=== PATIENT | male | born 1950 | race Two or more races ===

== ENCOUNTER 2016-11-25 14:41 | Inpatient (IN) | payer MEDICAID ==
[~2016-11-25] VITALS: Ht 175.3 cm; Wt 93.9 kg
[2016-11-25] MEDS ORDERED: ASPIRIN 81 MG TAB.CHEW PO ONE (15:00)
[2016-11-25] MEDS ORDERED: ASPIRIN 81 MG TAB.CHEW ONE (15:01)
[2016-11-25 15:05] LABS: BASOPHILS % (AUTO) 0.3 % (0.0-2.0); DIFF TOTAL % 100 %; EOSINOPHILS # (AUTO) 0.1 /CMM (0.0-0.7); HEMATOCRIT 44 % (39-51); HEMOGLOBIN 14.8 g/dL (13.5-17.5); LYMPHOCYTES # (AUTO) 2.4 /CMM (0.8-4.8); LYMPHOCYTES % (AUTO) 32.5 % (20.0-44.0); MEAN CORPUSCULAR HEMOGLOBIN 29 PG (26.0-33.0); MEAN CORPUSCULAR HGB CONC 33 g/dl (31.0-36.0); MEAN CORPUSCULAR VOLUME 87 fL (80-96); MONOCYTES # (AUTO) 0.6 /CMM (0.1-1.30); MONOCYTES % (AUTO) 8.4 % (2.0-12.0); NEUTROPHILS # (AUTO) 4.2 /CMM (1.8-8.9); NEUTROPHILS % (AUTO) 57.8 % (43.0-81.0); PLATELET COUNT (AUTO) 197 /CMM (150-450); RED BLOOD CELL COUNT(AUTO) 5.06 MIL/uL (4.5-6.0); WHITE BLOOD COUNT (AUTO) 7.3 K/uL (4.3-11.0)
[2016-11-25 15:25] LABS: TROPONIN I < 0.017 ng/mL (0.00-0.056)
[2016-11-25 15:30] LABS: ANION GAP 11 (5-14); CALCIUM, SERUM 8.4 mg/dL (8.5-10.1); CARBON DIOXIDE 27 mmol/L (21-32); CHLORIDE 103 mmol/L (98-107); CREATININE 1.1 mg/dL (0.6-1.3); GFR 67 mL/min (>60); GLUCOSE 174 mg/dL (74-106); POTASSIUM 3.9 mmol/L (3.5-5.1); SODIUM SERUM 137 mmol/L (136-145); UREA NITROGEN, BLOOD 12 mg/dL (7-18)
[2016-11-25 15:32] LABS: INR 1.05 (0.87-1.13)
[2016-11-25 20:00] VITALS: BP 162/80
[2016-11-25] MEDS ORDERED: ACETAMINOPHEN 325 MG TABLET PO PRN (22:30)
[2016-11-25] MEDS ORDERED: HYDROCODONE/APAP 5/325MG 1 EACH TABLET PO PRN (22:30)
[2016-11-25] MEDS ORDERED: ZOLPIDEM TARTRATE 5 MG TABLET PO PRN (22:30)
[2016-11-25] MEDS: METOPROLOL TARTRATE 25 MG TABLET PO SCH (22:30)
[2016-11-25] MEDS: ATORVASTATIN 10 MG TABLET PO SCH (22:30)
[2016-11-26] VITALS (8 sets, daily range): BP systolic 127–158; BP diastolic 73–88
[2016-11-26] MEDS ORDERED: METOPROLOL TARTRATE 25 MG TABLET ONE (00:10)
[2016-11-26] MEDS ORDERED: IV PREMIX 0.45% NS + KCL 1,000 ML IV ONE (01:46)
[2016-11-26] MEDS ORDERED: IV SET PRIMARY PUMP SET 1 EA INFUS.SET MC ONE (02:02)
[2016-11-26 07:25] LABS: BASOPHILS % (AUTO) 0.4 % (0.0-2.0); DIFF TOTAL % 100 %; EOSINOPHILS # (AUTO) 0.1 /CMM (0.0-0.7); EOSINOPHILS % (AUTO) 0.8 % (0.0-6.0); HEMATOCRIT 42 % (39-51); HEMOGLOBIN 14.4 g/dL (13.5-17.5); LYMPHOCYTES # (AUTO) 2.2 /CMM (0.8-4.8); LYMPHOCYTES % (AUTO) 30.2 % (20.0-44.0); MEAN CORPUSCULAR HEMOGLOBIN 30 PG (26.0-33.0); MEAN CORPUSCULAR HGB CONC 34 g/dl (31.0-36.0); MEAN CORPUSCULAR VOLUME 87 fL (80-96); MONOCYTES # (AUTO) 0.7 /CMM (0.1-1.30); MONOCYTES % (AUTO) 8.9 % (2.0-12.0); NEUTROPHILS # (AUTO) 4.4 /CMM (1.8-8.9); NEUTROPHILS % (AUTO) 59.7 % (43.0-81.0); PLATELET COUNT (AUTO) 184 /CMM (150-450); RED BLOOD CELL COUNT(AUTO) 4.78 MIL/uL (4.5-6.0); WHITE BLOOD COUNT (AUTO) 7.4 K/uL (4.3-11.0)
[2016-11-26 07:48] LABS: ALBUMIN 3.4 g/dL (3.4-5.0); BILIRUBIN,TOTAL 0.7 mg/dL (0.2-1.0); CALCIUM, SERUM 8.4 mg/dL (8.5-10.1); CREATININE 0.9 mg/dL (0.6-1.3); POTASSIUM 4.1 mmol/L (3.5-5.1); TOTAL PROTEIN, SERUM 6.8 g/dL (6.4-8.2)
[2016-11-26 07:56] LABS: THYROID STIMULATING HORMONE 5.189 uIU/mL (0.358-3.74)
[2016-11-26] MEDS ORDERED: ASPIRIN 325 MG TABLET PO SCH (09:00)
[2016-11-26] MEDS ORDERED: LISINOPRIL (10MG) 10 MG TABLET PO SCH (09:00)
[2016-11-26] MEDS ORDERED: INSU100I19 SQ (10:19)
[2016-11-26] MEDS ORDERED: ERGO50003 PO (10:19)
[2016-11-26] MEDS ORDERED: ESOM20CA37 PO (10:19)
[2016-11-26] MEDS ORDERED: DILT30TA14 PO (10:19)
[2016-11-26] MEDS ORDERED: ASPI81TA2 PO (10:19)
[2016-11-26] MEDS ORDERED: LOSA1TAB39 PO (10:19)
[2016-11-26] MEDS ORDERED: BLOO-668 IN (10:19)
[2016-11-26] MEDS ORDERED: GLIP5TAB13 PO (10:19)
[2016-11-26] MEDS ORDERED: CANA100T PO (10:19)
[2016-11-26] MEDS ORDERED: PRAV40TA3 PO (10:19)
[2016-11-26] MEDS ORDERED: NAPR500T3 PO (10:19)
[2016-11-26] MEDS ORDERED: DOXA4TAB3 PO (10:19)
[2016-11-26] MEDS ORDERED: LEVO25TA9 PO (10:19)
[2016-11-26] MEDS ORDERED: ARIP5TAB4 PO (10:19)
[2016-11-26] MEDS ORDERED: CARV12.52 PO (10:19)
[2016-11-26] MEDS: METOPROLOL TARTRATE 25 MG TABLET PO SCH (10:52)
[2016-11-26] MEDS: CARVEDILOL 12.5 MG TABLET PO SCH (21:06)
[2016-11-26] MEDS: ATORVASTATIN 10 MG TABLET PO SCH (21:06)
[2016-11-27 08:00] VITALS: BP 144/79
[2016-11-27] MEDS: CARVEDILOL 12.5 MG TABLET PO SCH (08:33)
[2016-11-27] MEDS ORDERED: LOSARTAN/HCTZ 50-12.5MG/ 1 EA TABLET PO SCH (09:00)
[2016-11-27] MEDS ORDERED: ASPIRIN 325 MG TABLET PO SCH (09:00)
[2016-11-27] MEDS ORDERED: ASPIRIN 81 MG TAB.CHEW PO SCH (09:00)
[2016-11-27] MEDS ORDERED: REGADENOSON 0.4 MG/5 ML DISP.SYRIN IVP ONE (12:30)
[2016-11-27 16:00] VITALS: BP 140/81
== END 2016-11-27 16:07 | disposition home or self-care (01) | DRG 756 ==
LOC: ER 14:42 → TRANSITION 20:10 → TELE 11-26 04:08 → MED 11-26 21:43
PROVIDERS: ADMIT Internal Medicine; ATTEND Internal Medicine
DX: F41.9 Anxiety disorder, unspecified (principal); I10 Essential (primary) hypertension; I25.10 Atherosclerotic heart disease of native coronary artery without angina pectoris; I25.2 Old myocardial infarction; E11.9 Type 2 diabetes mellitus without complications; E78.5 Hyperlipidemia, unspecified; Z83.3 Family history of diabetes mellitus; Z87.891 Personal history of nicotine dependence
CPT/HCPCS: 36415; 71010-TC; 80048-TC; 80053-TC; 80061-TC; 83880; 84443-TC; 84484-TC; 85025-TC; 85730-TC; 87081-TC; 93307-TC; A4606; A9502; J2785; J3480; J3490; Z7610

== ENCOUNTER 2017-03-12 15:15 | Inpatient (IN) | payer MEDICAID, MEDICARE ==
[~2017-03-12] VITALS: Ht 170.2 cm; Wt 86.2 kg
[~2017-03-12 15:15] MED LIST: ARIP5TAB4 PO; ASPI81TA2 PO; BLOO-668 IN; CANA100T PO; CARV12.52 PO; DILT30TA14 PO; DOXA4TAB3 PO; ERGO50003 PO; ESOM20CA37 PO; GLIP5TAB13 PO; INSU100I19 SQ; LEVO25TA9 PO; LOSA1TAB39 PO; NAPR500T3 PO; PRAV40TA3 PO
--- NOTE | 2017-03-12 15:18 | NUR ---
PT TO ER BED 11. HERE FOR EVER AND HEMATURIA X 5 DAYS. ALREADY TAKING BACTRIM. PT TEMP IS 101.4 DIRECTOR OF MARKETING [employer] PERFORMANCE ADS. GOWNED AND PLACED ON MONITOR. AWAITING MD SCHROEDER.
--- NOTE | 2017-03-12 16:25 | NUR ---
DR JENNINGS AT BEDSIDE FOR EVAL.
[2017-03-12] MEDS ORDERED: ACETAMINOPHEN ES 500 MG TABLET PO ONE (16:30)
[2017-03-12 16:36] LABS: APPEARANCE,URINE Cloudy (CLEAR); BILIRUBIN,URINE SMALL (NEGATIVE); BLOOD, URINE Large Ery/uL (NEGATIVE); COLOR,URINE Dark (YELLOW); KETONES,URINE Negative (NEGATIVE); LEUKOCYTE ESTERASE ,URINE Large (NEGATIVE); NITRITE, URINE Positive (NEGATIVE); PH,URINE 5.5 (5.0-8.0); PROTEIN,URINE 30 mg/dl (NEGATIVE); UGLUCOSE Negative (NEGATIVE)
[2017-03-12] MEDS ORDERED: ACETAMINOPHEN ES 500 MG TABLET ONE (16:40)
[2017-03-12 16:49] LABS: ADD URINE CULTURE YES; BACTERIA,URINE Few /HPF (None Seen); RBC,URINE 0-2 /HPF (0-2); SQUAMOUS EPITHELIAL CELL,UR Few /HPF (None Seen); WBC,URINE TOO NUMEROUS TO COUN /HPF (0-3)
[2017-03-12 16:50] LABS: BASOPHILS % (AUTO) 0.4 % (0.0-2.0); EOSINOPHILS % (AUTO) 0.1 % (0.0-6.0); HEMATOCRIT 42 % (39-51); HEMOGLOBIN 14.3 g/dL (13.5-17.5); LYMPHOCYTES # (AUTO) 1.4 /CMM (0.8-4.8); LYMPHOCYTES % (AUTO) 11.6 % (20.0-44.0); MEAN CORPUSCULAR HEMOGLOBIN 30 PG (26.0-33.0); MEAN CORPUSCULAR HGB CONC 34 g/dl (31.0-36.0); MEAN CORPUSCULAR VOLUME 87 fL (80-96); MONOCYTES # (AUTO) 1.1 /CMM (0.1-1.30); MONOCYTES % (AUTO) 8.6 % (2.0-12.0); NEUTROPHILS # (AUTO) 9.9 /CMM (1.8-8.9); NEUTROPHILS % (AUTO) 79.3 % (43.0-81.0); PLATELET COUNT (AUTO) 153 /CMM (150-450); RDW COEFFICIENT OF VARIATION 13.2 (11.5-15.0); RED BLOOD CELL COUNT(AUTO) 4.83 MIL/uL (4.5-6.0); WHITE BLOOD COUNT (AUTO) 12.4 K/uL (4.3-11.0)
[2017-03-12 16:56] LABS: CALCIUM, SERUM 8.9 mg/dL (8.5-10.1); CARBON DIOXIDE 22 mmol/L (21-32); CHLORIDE 100 mmol/L (98-107); CREATININE 1.4 mg/dL (0.6-1.3); GFR 51 mL/min (>60); GLUCOSE 205 mg/dL (74-106); POTASSIUM 4.5 mmol/L (3.5-5.1); SODIUM SERUM 132 mmol/L (136-145); UREA NITROGEN, BLOOD 21 mg/dL (7-18)
[2017-03-12 17:00] LABS: INR 1.09 (0.87-1.13); PROTHROMBIN TIME 11.3 SECS (9.5-12.7)
[2017-03-12 17:04] LABS: TROPONIN I < 0.017 ng/mL (0.00-0.056)
[2017-03-12 17:08] LABS: ALANINE AMINOTRANSFERASE 42 U/L (12-78); ALBUMIN 2.9 g/dL (3.4-5.0); ALKALINE PHOSPHATASE 93 U/L (46-116); ASPARTATE AMINOTRANSFERASE 29 U/L (15-37); BILIRUBIN,DIRECT 0.4 mg/dL (0.0-0.2); BILIRUBIN,TOTAL 0.9 mg/dL (0.2-1.0); TOTAL PROTEIN, SERUM 7.7 g/dL (6.4-8.2)
[2017-03-12 17:10] LABS: LACTIC ACID 1.2 mmol/L (0.4-2.0)
[2017-03-12] MEDS ORDERED: CEFTRIAXONE 1 G in IV D5W 50 ML IV ONE (18:00)
[2017-03-12] MEDS ORDERED: IV NS 0.9% 1,000 ML BAG IV ONE (18:00)
[2017-03-12] MEDS ORDERED: CEFTRIAXONE 1GM BAG (ER ONLY) 50 ML IV ONE (18:14)
[2017-03-12] MEDS ORDERED: IV SET PRIMARY PUMP SET 1 EA INFUS.SET MC ONE ×2 (18:14→21:52)
[2017-03-12] MEDS ORDERED: IV NS 0.9% 1,000 ML ONE (18:14)
--- NOTE | 2017-03-12 18:21 | NUR ---
ORAL TEMP RECHECK. 99.7
[2017-03-12 19:15] VITALS: BP 107/62
--- NOTE | 2017-03-12 19:15 | NUR ---
MS/TECHNICAL SUPPORT ASSOCIATE; ADMITTED 66 YEARS OLD MALE PT. FROM ER VIA GURNEY ACCOMPANIED BY ER MALE STAFF AND PT'S . PT AWAKE, ALERT AND ORIENTED ARMENIA / UGANDAN SPEAKING. INFORMATIONS TAKEN FOR AN CYMRAES TOBACCO EDUCATOR. DENIES PAIN. PT INSTRUCTED TO CALL FOR HELP. CALL LIGHT AND URINAL WITHIN REACH. BED ON LOWER POSITION AND LOCKED FOR SAFETY. UPPER PART OF BED SIDE RAILS ARE UP FOR SAFETY. PT WITH SOME REDNESS WOODWARD ON BOTH LOWER LEGS AND UPPER LIP. DX; UTI. WILL CONTINUE TO MONITOR.
--- NOTE | 2017-03-12 19:28 | NUR ---
REPORT GIVEN TO NAIMA. PTTRANSFERED TO FLOOR. STABLE CONDITION.
[2017-03-12] MEDS ORDERED: ACETAMINOPHEN ES 500 MG TABLET PO PRN (19:30)
[2017-03-12 20:00] VITALS: BP 107/62
[2017-03-12] MEDS ORDERED: Medication Not On Formulary EA (Canagliflozin (Invokana) 100 MG) PO SCH (20:00)
[2017-03-12] MEDS ORDERED: DILTIAZEM HCL 30 MG TABLET PO SCH (20:00)
[2017-03-12] MEDS ORDERED: INSULIN REGULAR, HUMAN 100 UNIT/ML 3 ML VIAL SQ PRN (20:00)
[2017-03-12] MEDS ORDERED: CARVEDILOL 12.5 MG TABLET PO SCH (20:00)
[2017-03-12] MEDS ORDERED: ASPIRIN 81 MG TAB.CHEW PO SCH (20:00)
[2017-03-12] MEDS ORDERED: DEXTROSE 50%-WATER 50 ML DISP.SYRIN IV PRN (20:00)
[2017-03-12] MEDS ORDERED: *INSULIN REGULAR(HUMULIN R)HUM 100 UNIT/ML VIAL SQ PRN (20:00)
[2017-03-12] MEDS ORDERED: LEVOFLOXACIN 500 MG /D5W 100ML 500 MG in PREMIX 1 EA IV SCH (21:00)
[2017-03-12] MEDS ORDERED: SECONDARY IV SET 1 EA INFUS.SET MC ONE (21:52)
[2017-03-12] MEDS ORDERED: IV NS 0.9% 250 ML IV ONE (21:52)
[2017-03-12] MEDS ORDERED: INSULIN DETEMIR 100 UNIT/ML CARTRIDGE SQ SCH (22:00)
[2017-03-12] MEDS: BLOOD SUGAR DIAGNOSTIC 1 EACH STRIP VI SCH ×2 (22:15→22:20)
--- NOTE | 2017-03-12 22:15 | NUR ---
MS/WHEAT WASHER; BS 258 COVERAGE OF REGULAR INSULIN 6 UNITS NOT GIVEN PT REFUSED HE SAID NO INSULIN. CHARGE NURSE INFORMED AND SAID JUST DOCUMENT.
--- NOTE | 2017-03-13 02:00 | NUR ---
MS/BELT LINE FEEDER; AWAKE AT THIS TIME. OFFERED DVT PUMP FOR BOTH LOWER LEGS PT REFUSED.
--- NOTE | 2017-03-13 05:00 | NUR ---
MS/DAIRY FARM WORKER; PT OK TO USE THE DVT PUMP AND IT IS ON .
--- NOTE | 2017-03-13 06:00 | NUR ---
MS/SANDER MACHINE; BS 199 REGULAR INSULIN 3 UNITS SQ NOT GIVEN PT REFUSED AGAIN . HE SAID NO INSULIN.
[2017-03-13] MEDS: BLOOD SUGAR DIAGNOSTIC 1 EACH STRIP VI SCH ×2 (06:01→12:00)
--- NOTE | 2017-03-13 06:51 | NUR ---
MS/SAW SHARPENER; PT SAID HE SLEPT AT SHORT INTERVALS. DENIES ANY PAIN NOR DISCOMFORT. VOIDED CLEAR YELLOW URINE X 4 BUT NO HEMATURIA. PT USED URINAL Q VOIDING. HAS BEEN AFEBRILE. CONTINUE TO MONITOR. CALL LIGHT AND URINAL WITHIN REACH. WILL ENDORSE TO THE DAY SHIFT NURSE.
[2017-03-13] MEDS ORDERED: PANTOPRAZOLE 40 MG TABLET.DR PO SCH (07:30)
[2017-03-13] MEDS ORDERED: LEVOTHYROXINE SODIUM 25 MCG TABLET PO SCH (07:30)
--- NOTE | 2017-03-13 07:45 | NUR ---
RN OPEN NOTES RECEIVED REPORT FROM EMBOSSING CALENDER OPERATOR NURSE. PATIENT IS IN BED, ALERT AND ORIENTED TO NAME, TIME AND PLACE. BED IS IN LOW POSITION, LOCKED AND 2 SIDE RAILS ARE UP. IV SITE IS INTACT AND POTENT. WILL CONTINUE TO MONITOR AND ASSESS PATIENT.
[2017-03-13 07:59] LABS: BASOPHILS % (AUTO) 0.3 % (0.0-2.0); EOSINOPHILS % (AUTO) 0.1 % (0.0-6.0); HEMATOCRIT 38 % (39-51); HEMOGLOBIN 12.8 g/dL (13.5-17.5); LYMPHOCYTES # (AUTO) 1.6 /CMM (0.8-4.8); LYMPHOCYTES % (AUTO) 13.6 % (20.0-44.0); MEAN CORPUSCULAR HEMOGLOBIN 30 PG (26.0-33.0); MEAN CORPUSCULAR HGB CONC 34 g/dl (31.0-36.0); MEAN CORPUSCULAR VOLUME 88 fL (80-96); MONOCYTES # (AUTO) 1.1 /CMM (0.1-1.30); MONOCYTES % (AUTO) 9.7 % (2.0-12.0); NEUTROPHILS # (AUTO) 8.8 /CMM (1.8-8.9); NEUTROPHILS % (AUTO) 76.3 % (43.0-81.0); PLATELET COUNT (AUTO) 172 /CMM (150-450); RDW COEFFICIENT OF VARIATION 14.1 (11.5-15.0); RED BLOOD CELL COUNT(AUTO) 4.34 MIL/uL (4.5-6.0); WHITE BLOOD COUNT (AUTO) 11.6 K/uL (4.3-11.0)
[2017-03-13 08:33] LABS: CALCIUM, SERUM 8.4 mg/dL (8.5-10.1); CREATININE 1.2 mg/dL (0.6-1.3); POTASSIUM 4.1 mmol/L (3.5-5.1)
[2017-03-13] MEDS ORDERED: glipiZIDE 5 MG TABLET PO SCH (09:00)
[2017-03-13] MEDS ORDERED: ARIPIPRAZOLE 5 MG TABLET PO SCH (09:00)
[2017-03-13] MEDS ORDERED: LOSARTAN POTASSIUM 50 MG TABLET PO SCH (09:00)
[2017-03-13] MEDS ORDERED: ASPIRIN 81 MG TAB.CHEW PO SCH (09:00)
[2017-03-13] MEDS ORDERED: ATORVASTATIN 10 MG TABLET PO SCH (09:00)
[2017-03-13] MEDS ORDERED: CARVEDILOL 12.5 MG TABLET PO SCH (09:00)
[2017-03-13] MEDS ORDERED: HYDROCHLOROTHIAZIDE 25 MG TABLET PO SCH (09:00)
[2017-03-13] MEDS ORDERED: DOXAZOSIN MESYLATE (4 MG) 4 MG TABLET PO SCH (09:00)
[2017-03-13 09:12] VITALS: BP 118/64
[2017-03-13] MEDS ORDERED: LEVO500T15 PO (09:13)
[2017-03-13] MEDS ORDERED: LEVOFLOXACIN 500 MG /D5W 100ML 500 MG in PREMIX 1 EA IV SCH (09:30)
--- NOTE | 2017-03-13 12:45 | NUR ---
DIESEL TRACTOR OPERATOR NOTES PATIENT DISCHARGE INSTRUCTIONS REVIEWED WITH PATIENT AND HIS . ALL PERSONAL ITEMS AT THE PATIENT POSSESSION AT TIME OF DISCHARGE. PATIENT IV SITE REMOVED. ID BAND REMOVED. NEW PRESCRIPTION WAS GIVEN TO PATIENT. SKIN IS INTACT AT TIME OF DISCHARGE. PATIENT VITAL SIGN STABLE. NO SIGN AND SYMPTOMS OF DISTRESS. PATIENT IS BEING DISCHARGE IN A STABLE CONDITION.
[2017-03-13] MEDS ORDERED: INSULIN DETEMIR 100 UNIT/ML CARTRIDGE SQ SCH (22:00)
[2017-03-14] MEDS ORDERED: ERGOCALCIFEROL (VITAMIN D 2) 50,000 UNIT CAPSULE PO SCH (09:00)
== END 2017-03-13 13:10 | disposition home or self-care (01) | DRG 463 ==
LOC: ER 15:18 → MED 18:49
PROVIDERS: ADMIT Internal Medicine; ATTEND Internal Medicine
DX: N39.0 Urinary tract infection, site not specified (principal); I10 Essential (primary) hypertension; E03.9 Hypothyroidism, unspecified; E11.9 Type 2 diabetes mellitus without complications; E78.5 Hyperlipidemia, unspecified; I25.10 Atherosclerotic heart disease of native coronary artery without angina pectoris; Z79.84 Long term (current) use of oral hypoglycemic drugs
CPT/HCPCS: 36415; 76770-TC; 80048-TC; 80076-TC; 81000-TC; 82962-TC; 83605-TC; 84484-TC; 85025-TC; 85730-TC; 87040-TC; 87081-TC; 87086-TC; 87186-TC; A4216; A4606; J0696; J1815; J1956; J7030; J7050; Z7610

== ENCOUNTER 2017-03-19 19:02 | Emergency (ER) | payer MEDICARE, MEDICAID ==
[~2017-03-19] VITALS: Ht 172.7 cm; Wt 72.6 kg
[~2017-03-19 19:02] MED LIST changes: -DILT30TA14 PO; +LEVO500T15 PO
[2017-03-19] MEDS ORDERED: LIDOCAINE 2% JEL UROJET 10 ML MM ONE ×2 (19:20→19:30)
--- NOTE | 2017-03-19 19:20 | NUR ---
TO BED 4 AMBULATORY C/O DIFFICULTY URINATING SINCE YESTERDAY. PT AAOX4 NO ACUTE DISTRESS NOTED, RESP EVEN AND UNLABORED. ER MD AT BEDSIDE TO EVAL PT WITH ORDERS RECEIVED. PT UNABLE TO PROVIDE URINE SAMPLE AT THIS TIME.
--- NOTE | 2017-03-19 19:25 | NUR ---
BLOOD DRAWN BY TAB CARD PRESS OPERATOR.
[2017-03-19 19:28] LABS: BASOPHILS % (AUTO) 0.2 % (0.0-2.0); EOSINOPHILS # (AUTO) 0.1 /CMM (0.0-0.7); EOSINOPHILS % (AUTO) 0.7 % (0.0-6.0); HEMATOCRIT 43 % (39-51); HEMOGLOBIN 14.6 g/dL (13.5-17.5); LYMPHOCYTES # (AUTO) 2.7 /CMM (0.8-4.8); LYMPHOCYTES % (AUTO) 28.8 % (20.0-44.0); MEAN CORPUSCULAR HEMOGLOBIN 30 PG (26.0-33.0); MEAN CORPUSCULAR HGB CONC 34 g/dl (31.0-36.0); MEAN CORPUSCULAR VOLUME 87 fL (80-96); MONOCYTES # (AUTO) 0.8 /CMM (0.1-1.30); MONOCYTES % (AUTO) 8.4 % (2.0-12.0); NEUTROPHILS # (AUTO) 5.8 /CMM (1.8-8.9); NEUTROPHILS % (AUTO) 61.9 % (43.0-81.0); PLATELET COUNT (AUTO) 462 /CMM (150-450); RDW COEFFICIENT OF VARIATION 12.7 (11.5-15.0); RED BLOOD CELL COUNT(AUTO) 4.94 MIL/uL (4.5-6.0); WHITE BLOOD COUNT (AUTO) 9.4 K/uL (4.3-11.0)
--- NOTE | 2017-03-19 19:30 | NUR ---
F/C 16FR INSERTED WITH USE OF LIDOCAINE UROJECT, NOTED ORANGE COLOR URINE APPROXIMATELY 400ML'S. URINE SAMPLE COLLECTED AND SENT TO LAB.
[2017-03-19 19:38] LABS: CALCIUM, SERUM 8.9 mg/dL (8.5-10.1); CREATININE 1.6 mg/dL (0.6-1.3); POTASSIUM 4.5 mmol/L (3.5-5.1)
[2017-03-19 20:19] LABS: APPEARANCE,URINE Clear (CLEAR); BILIRUBIN,URINE Negative (NEGATIVE); BLOOD, URINE Moderate Ery/uL (NEGATIVE); COLOR,URINE Dark (YELLOW); KETONES,URINE Negative (NEGATIVE); LEUKOCYTE ESTERASE ,URINE Negative (NEGATIVE); NITRITE, URINE Positive (NEGATIVE); PROTEIN,URINE Negative (NEGATIVE); UGLUCOSE 100 MG/DL mg/dL (NEGATIVE)
[2017-03-19 20:30] LABS: ADD URINE CULTURE YES; BACTERIA,URINE Moderate /HPF (None Seen); SQUAMOUS EPITHELIAL CELL,UR Few /HPF (None Seen); WBC,URINE 0-2 /HPF (0-3)
--- NOTE | 2017-03-19 20:48 | NUR ---
LEG BAG APPLIED PER ER MD ORDER. Patient discharged to home in stable condition. Written and verbal after care instructions given. Patient verbalizes understanding of instruction. ambulatory with a steady gait noted.
[2017-03-19 20:50] VITALS: BP 147/89
== END 2017-03-19 20:50 | disposition home or self-care (01) ==
LOC: ER 19:05
DX: N40.1 Benign prostatic hyperplasia with lower urinary tract symptoms (principal); R33.8 Other retention of urine; R31.29 Other microscopic hematuria; I12.9 Hypertensive chronic kidney disease with stage 1 through stage 4 chronic kidney disease, or unspecified chronic kidney disease; N18.9 Chronic kidney disease, unspecified; E11.9 Type 2 diabetes mellitus without complications; Z79.82 Long term (current) use of aspirin; Z79.4 Long term (current) use of insulin
CPT/HCPCS: 36415; 51702; 80048; 81001; 85025; 87086; 99284; A4606; J3490; 81000-TC; Z7610

== ENCOUNTER 2022-12-20 13:37 | Inpatient (IN) | payer MEDICARE, OTHER ==
[~2022-12-20] VITALS: Ht 175.3 cm; Wt 82.1 kg
[~2022-12-20 13:37] MED LIST changes: +ARIP5TAB10 PO; -ARIP5TAB4 PO; +ASPI-1169 PO; -ASPI81TA2 PO; +ERGO500014 PO; -ERGO50003 PO; -LEVO500T15 PO; +LEVO500T23 PO; +NAPR-1009 PO; -NAPR500T3 PO
--- NOTE | 2022-12-20 13:46 | NUR ---
BIB FAMILY FOR CHEST PAIN/SOB X 1 WEEK. MID CHEST, NON RADIATING. SENT BY DR EDWARDS FOR FURTHER. PT AMBULATED TO BED WITH STEADY GAIT. AAOX4. NO SOB.
--- NOTE | 2022-12-20 13:50 | NUR ---
ESTABLISHED IV ACCESS 18G LEFT AC. BLOOD DRAWN, SENT TO LAB.
--- NOTE | 2022-12-20 13:55 | NUR ---
TECH AT BEDSIDE FOR EKG
--- NOTE | 2022-12-20 13:58 | NUR ---
PHLEB AT BEDSIDE FOR BLOOD DRAW
[2022-12-20 14:06] LABS: BASOPHILS % (AUTO) 0.2 % (0.0-2.0); EOSINOPHILS % (AUTO) 0.7 % (0.0-6.0); HEMATOCRIT 38 % (39-51); HEMOGLOBIN 12.4 g/dL (13.5-17.5); LYMPHOCYTES # (AUTO) 2.2 K/uL (0.8-4.8); LYMPHOCYTES % (AUTO) 24.7 % (20.0-44.0); MEAN CORPUSCULAR HGB CONC 33 g/dl (31.0-36.0); MEAN CORPUSCULAR VOLUME 84 fL (80-96); MONOCYTES # (AUTO) 1.1 K/uL (0.1-1.30); MONOCYTES % (AUTO) 12.3 % (2.0-12.0); NEUTROPHILS # (AUTO) 5.6 K/uL (1.8-8.9); NEUTROPHILS % (AUTO) 62.1 % (43.0-81.0); PLATELET COUNT (AUTO) 311 K/uL (150-450); RED BLOOD CELL COUNT(AUTO) 4.49 MIL/uL (4.5-6.0)
--- NOTE | 2022-12-20 14:07 | NUR ---
XRAY AT BEDSIDE
--- NOTE | 2022-12-20 14:07 | NUR ---
MOVE SHEET SUBMITTED.
[2022-12-20 14:14] LABS: CALCIUM, SERUM 9.1 mg/dL (8.5-10.1); CARBON DIOXIDE 23 mmol/L (21-32); CHLORIDE 103 mmol/L (98-107); CREATININE 1.3 mg/dL (0.6-1.3); GLUCOSE 224 mg/dL (74-106); POTASSIUM 4.1 mmol/L (3.5-5.1); SODIUM SERUM 138 mmol/L (136-145); UREA NITROGEN, BLOOD 21 mg/dL (7-18)
[2022-12-20] MEDS ORDERED: OLME40TA18 PO (14:14)
[2022-12-20] MEDS ORDERED: MEMA28CA5 PO (14:14)
[2022-12-20] MEDS ORDERED: TAMS-12 PO (14:14)
[2022-12-20] MEDS ORDERED: SITA1TAB6 PO (14:14)
[2022-12-20] MEDS ORDERED: FINA5TAB11 PO (14:14)
[2022-12-20] MEDS ORDERED: EMPA10TA PO (14:14)
--- NOTE | 2022-12-20 14:31 | NUR ---
TROPONIN 366 PER LAB. MADE AWARE.
--- NOTE | 2022-12-20 14:47 | NUR ---
JESSIE AT BEDSIDE. DARIEL [phone].
--- NOTE | 2022-12-20 14:48 | NUR ---
COVID SWAB COLLECTED AND SENT TO LAB.
[2022-12-20] MEDS ORDERED: ACETAMINOPHEN 325 MG TABLET PO PRN (15:00)
[2022-12-20] MEDS ORDERED: MAGNESIUM HYDROXIDE 30 ML UDC PO PRN (15:00)
[2022-12-20] MEDS ORDERED: ASPIRIN 81 MG TAB.CHEW PO ONE (15:00)
[2022-12-20] MEDS ORDERED: TEMAZEPAM 15 MG CAPSULE PO PRN (15:00)
[2022-12-20] MEDS ORDERED: DEXTROSE 50%-WATER 50 ML DISP.SYRIN IV PRN (15:00)
[2022-12-20] MEDS ORDERED: MAG HYDROX/AL HYDROX/SIMETH 30 ML UDC PO PRN (15:00)
[2022-12-20] MEDS ORDERED: MORPHINE SULFATE INJ 2 MG/ML DISP.SYRIN IV PRN (15:00)
[2022-12-20] MEDS ORDERED: NITROGLYCERIN 0.4 MG/TAB BOTTLE SL PRN (15:00)
[2022-12-20] MEDS ORDERED: HOME MED MISCELLANEOUS XX SCH ×2 (15:00)
[2022-12-20] MEDS ORDERED: Z GUARD REMEDY 4 OZ OINT TP PRN (15:00)
[2022-12-20] MEDS ORDERED: ONDANSETRON HCL/PF 4 MG/2 ML VIAL IVP PRN (15:00)
[2022-12-20] MEDS ORDERED: HYDROCODONE/APAP 5/325MG TABLET PO PRN (15:00)
[2022-12-20] MEDS ORDERED: ENOXAPARIN SODIUM 40 MG/0.4 ML DISP.SYRIN SQ SCH (15:00)
--- NOTE | 2022-12-20 15:24 | NUR ---
CALLED NURSING SUP FOR TELE BED.
[2022-12-20] MEDS ORDERED: ENOXAPARIN SODIUM 80 MG/0.8 ML DISP.SYRIN SQ ONE (15:30)
[2022-12-20 15:34] LABS: THYROID STIMULATING HORMONE < 0.007 uIU/mL (0.358-3.74)
[2022-12-20] MEDS ORDERED: ASPIRIN 81 MG TAB.CHEW ONE (15:36)
--- NOTE | 2022-12-20 15:37 | NUR ---
GOT BED 329
--- NOTE | 2022-12-20 15:48 | NUR ---
REPORT GIVEN TO MATTHEW ACHARYA.
[2022-12-20 16:25] VITALS: BP 167/90
--- NOTE | 2022-12-20 16:26 | NUR ---
PT TRANSFERRED TO UNIT VIA YEN ACLS PROTOCOL. WARM HANDOFF GIVEN TO RN ASSIGNED.
[2022-12-20] MEDS ORDERED: BLOOD SUGAR DIAGNOSTIC 1 EACH STRIP IN SCH (17:00)
[2022-12-20] MEDS ORDERED: CARVEDILOL 12.5 MG TABLET PO SCH (17:00)
--- NOTE | 2022-12-20 17:14 | NUR ---
MS RN NOTES NOTIFIED DR PAWEL ROYAL REGARDING TROPONIN CRITICAL RESULT 353, NO NEW ORDER MADE AT THIS TIME. ALSO CLARIFIED WITH DR ROAYL REGARDING LOVENOX 80 MG ORDER IF WANTS STARTED TOMORROW OR TODAY, LOVENOX NOT GIVEN AT THE ER PER SUELLEN ACHARYA AND PHARMACIST VERIFIED ADMINISTRATION RECORD NOT GIVEN, PER IF NOT GIVEN TODAY START DOSE LOVENOX 80 MG TONIGHT, ALSO CLARIFIED WITH MD REGARDING ACCU CHECK ORDER, PER MD HE WANTS ACCU CHECK A[facility]S.
[2022-12-20] MEDS ORDERED: LOSARTAN POTASSIUM 50 MG TABLET PO SCH (17:30)
--- NOTE | 2022-12-20 17:30 | NUR ---
MS RN NOTES PATIENT REFUSED INSULIN , BLOOD GLUCOSE IS 135, RISKS AND BENEFITS EXPLAINED, VERBALIZED UNDERSTANDING.
[2022-12-20] MEDS ORDERED: CT SWABBABLE VALVE TRANS SET 1 EA INFUS.SET MC ONE (17:44)
[2022-12-20] MEDS ORDERED: IV NS 0.9% 250 ML IV ONE (17:44)
[2022-12-20] MEDS ORDERED: IOHEXOL-350 100 ML VIAL IV ONE (17:44)
--- NOTE | 2022-12-20 17:45 | NUR ---
RN NOTES RECEIVED PT ON IN CT DEPARTMENT, A/OX4, ABLE TO COMMUNICATE , VSS STABLE , ON TELE SR HR IN 80'S , CONTINUE WITH CTA PER ORDER .
--- NOTE | 2022-12-20 17:55 | NUR ---
MS RN NOTES PATIENT TRANSPORTED FOR CTA IN STABLE CONDITION
[2022-12-20] MEDS ORDERED: METOPROLOL TARTRATE INJ 5 MG/5 ML AMPUL ONE ×2 (18:09→18:22)
[2022-12-20] MEDS: BLOOD SUGAR DIAGNOSTIC 1 EACH STRIP IN SCH ×2 (18:22→21:12)
[2022-12-20] MEDS: INSULIN REGULAR, HUMAN 100 UNIT/ML 3 ML VIAL SQ PRN (18:23)
--- NOTE | 2022-12-20 18:33 | NUR ---
MS RN NOTES CRITICAL TROPONIN [address] ROYAL MADE AWARE, NO NEW ORDER MADE.
--- NOTE | 2022-12-20 18:40 | NUR ---
RN NOTES CTA DONE , PT RECEIVED TOTAL OF 50 MG IV METOPROLOL , HR STAYED IN 70'S TO 80'S , SR , DURINING THE PROCEDURE. BP STABLE, PT TOLERATED CTA WELL, NO DISTRESS NOTED , DENIES ANY CHEST PAIN , PT BACK TO HIS ROOM IN STABLE CONDITION,
--- NOTE | 2022-12-20 19:00 | NUR ---
MS RN NOTES PATIENT IN BED ALERT ORIENTED X 4. NO ACUTE DISTRESS NOTED, BREATHING UNLABORED. DENIED PAIN AT THIS TIME, NO FACIAL GRIMACING NOTED. ON TELEMETRY SINUS RHYTHM HR 72. IV ACCESS PATENT AND INTACT, NO REDNESS, NO SWELLING NOTED. NEEDS ATTENDED AND ANTICIPATED. SAFETY MEASURES IN PLACE, CALL LIGHT WITHIN REACH, WILL ENDORSE TO NIGHT NURSE FOR CONTINUITY OF CARE.
[2022-12-20 20:00] VITALS: BP 141/78
[2022-12-20] MEDS: ENOXAPARIN SODIUM 40 MG/0.4 ML DISP.SYRIN SQ SCH (21:11)
[2022-12-20] MEDS: TAMSULOSIN 0.4 MG CAP.SR.24H PO SCH (21:12)
[2022-12-20] MEDS: INSULIN GLARGINE, 100 UNIT/ML CARTRIDGE SQ SCH (21:24)
--- NOTE | 2022-12-20 21:25 | NUR ---
MS RN NOTES PT REFUSED INSULIN RISK AND BENEFITS EXPLAINED X3 PER PT "NO I DON'T TAKE INSULIN I JUST TAKE THE PILL I DON'T NEED IT".
[2022-12-21] VITALS: BP 148/85
--- NOTE | 2022-12-21 03:14 | NUR ---
ms rn note received critical lab report pt troponin 381 reported to compressor station chief engineer dr Mathis. pt not reporting any chest pain at this time .
[2022-12-21 04:00] VITALS: BP 139/76
[2022-12-21 06:32] LABS: BASOPHILS % (AUTO) 0.4 % (0.0-2.0); EOSINOPHILS % (AUTO) 0.7 % (0.0-6.0); HEMATOCRIT 33 % (39-51); HEMOGLOBIN 11.1 g/dL (13.5-17.5); LYMPHOCYTES % (AUTO) 25.5 % (20.0-44.0); MEAN CORPUSCULAR HGB CONC 34 g/dl (31.0-36.0); MEAN CORPUSCULAR VOLUME 83 fL (80-96); MONOCYTES # (AUTO) 0.8 K/uL (0.1-1.30); MONOCYTES % (AUTO) 10.6 % (2.0-12.0); NEUTROPHILS # (AUTO) 4.9 K/uL (1.8-8.9); NEUTROPHILS % (AUTO) 62.8 % (43.0-81.0); PLATELET COUNT (AUTO) 268 K/uL (150-450); RED BLOOD CELL COUNT(AUTO) 3.97 MIL/uL (4.5-6.0); WHITE BLOOD COUNT (AUTO) 7.7 K/uL (4.3-11.0)
[2022-12-21] MEDS: BLOOD SUGAR DIAGNOSTIC 1 EACH STRIP IN SCH ×4 (06:39→21:59)
[2022-12-21] MEDS: INSULIN REGULAR, HUMAN 100 UNIT/ML 3 ML VIAL SQ PRN ×3 (06:40→17:03)
[2022-12-21 07:16] LABS: CALCIUM, SERUM 9.1 mg/dL (8.5-10.1); CARBON DIOXIDE 22 mmol/L (21-32); CHLORIDE 104 mmol/L (98-107); CREATININE 1.1 mg/dL (0.6-1.3); GLUCOSE 187 mg/dL (74-106); MAGNESIUM 1.8 mg/dL (1.8-2.4); PHOSPHORUS 3.6 mg/dL (2.5-4.9); SODIUM SERUM 139 mmol/L (136-145); UREA NITROGEN, BLOOD 17 mg/dL (7-18)
[2022-12-21 07:46] LABS: CHOLESTEROL 88 mg/dL (<200); HDL CHOLESTEROL 32 mg/dL (40-60); LDL 53 mg/dL (0-99); TRIGLYCERIDES 99 mg/dL (30-150)
[2022-12-21] MEDS: PANTOPRAZOLE 40 MG TABLET.DR PO SCH (07:51)
[2022-12-21 08:00] VITALS: BP 141/80
[2022-12-21 08:05] LABS: THYROID STIMULATING HORMONE < 0.007 uIU/mL (0.358-3.74)
--- NOTE | 2022-12-21 08:12 | NUR ---
AIRLINE MANAGERIAL SUPERVISOR OPENING NOTE Received patient awake, alert, oriented x 4, up out-of-bed walking in room to bathroom and back to bed with steady gait. Denies having any chest pain at this time. Heart rate/rythym is 80s to 100s bpm SR/ST. Vital signs stable with moderate hypertension. All four extremities well perfused, warm to touch with positive pulses. LS clear to auscultation. Saline lock # 18 gauge patent and intact to left antecubital space. Sfety measures in place with bed locked in lowest position, siderails up x 2, and calll bird/light within patient's reach. Will continue to monitor patient per MD plan of care.
[2022-12-21] MEDS: ARIPIPRAZOLE 5 MG TABLET PO SCH (08:29)
[2022-12-21] MEDS: ASPIRIN 81 MG TAB.CHEW PO SCH (08:30)
[2022-12-21] MEDS: CARVEDILOL 12.5 MG TABLET PO SCH ×2 (08:31→17:01)
[2022-12-21] MEDS: VALSARTAN 80 MG TABLET PO SCH (08:35)
[2022-12-21] MEDS: glipiZIDE 5 MG TABLET PO SCH (08:36)
[2022-12-21] MEDS: FINASTERIDE (5 MG) 5 MG TABLET PO SCH (08:36)
[2022-12-21] MEDS: ENOXAPARIN SODIUM 40 MG/0.4 ML DISP.SYRIN SQ SCH ×2 (08:38→20:47)
[2022-12-21 12:00] VITALS: BP 112/69
[2022-12-21 16:00] VITALS: BP 138/77
--- NOTE | 2022-12-21 19:30 | NUR ---
HUMAN RESOURCES EXECUTIVE OPENING NOTES. RECEIVED PATIENT AWAKE IN BED. PATIENT IS A/O TIMES 4 AND TANZANIAN SPEAKER . ABLE TO MAKE NEEDS KNOWN. NO PAIN NOTED. NO SOB NOTED. NO DISTRESS NOTED. IV ACCESS ON THE LAC G # 20 INTACT AND SL. ON TELE MONITOR READING SR. ALL NEEDS ATTENDED. ALL SAFETY MEASURES IN PLACE. BED LOCKED IN THE LOWEST POSITION. CALL LIGHT AND TABLE IN EASY REACH. SIDE RAILS UP TIMES 2. WILL CONTINUE TO MONITOR CLOSELY.
[2022-12-21 20:00] VITALS: BP 160/85
[2022-12-21] MEDS: TAMSULOSIN 0.4 MG CAP.SR.24H PO SCH (21:59)
[2022-12-21] MEDS: INSULIN GLARGINE, 100 UNIT/ML CARTRIDGE SQ SCH (22:00)
--- NOTE | 2022-12-21 22:00 | NUR ---
RN NOTES PATIENT REFUSED LANTUS AND REGULAR INSULIN FOR 2200. PATIENT BLOOD GLUCOSE LEVEL NOTED 133. PATIENT STATED" MY BLOOD GLUCOSE LEVEL WILL DROP IF YOU ADMINISTER THE INSULIN" .
[2022-12-22] VITALS: BP 141/75
[2022-12-22 04:00] VITALS: BP 148/83
[2022-12-22] MEDS: BLOOD SUGAR DIAGNOSTIC 1 EACH STRIP IN SCH ×4 (05:58→21:50)
[2022-12-22] MEDS: INSULIN REGULAR, HUMAN 100 UNIT/ML 3 ML VIAL SQ PRN ×4 (06:00→21:51)
[2022-12-22 06:32] LABS: BASOPHILS % (AUTO) 0.2 % (0.0-2.0); EOSINOPHILS % (AUTO) 0.7 % (0.0-6.0); HEMATOCRIT 34 % (39-51); HEMOGLOBIN 11.5 g/dL (13.5-17.5); LYMPHOCYTES # (AUTO) 1.9 K/uL (0.8-4.8); LYMPHOCYTES % (AUTO) 26.4 % (20.0-44.0); MEAN CORPUSCULAR HGB CONC 34 g/dl (31.0-36.0); MEAN CORPUSCULAR VOLUME 82 fL (80-96); MONOCYTES # (AUTO) 0.7 K/uL (0.1-1.30); MONOCYTES % (AUTO) 10.1 % (2.0-12.0); NEUTROPHILS # (AUTO) 4.4 K/uL (1.8-8.9); NEUTROPHILS % (AUTO) 62.6 % (43.0-81.0); PLATELET COUNT (AUTO) 290 K/uL (150-450); RED BLOOD CELL COUNT(AUTO) 4.13 MIL/uL (4.5-6.0)
--- NOTE | 2022-12-22 06:48 | NUR ---
HEARING CARE PROFESSIONAL CLOSING NOTES. PATIENT AWAKE IN BED. PATIENT IS A/O TIMES 4 AND FRENCH SPEAKER . ABLE TO MAKE NEEDS KNOWN. NO PAIN NOTED. NO SOB NOTED. NO DISTRESS NOTED. IV ACCESS ON THE LAC G # 20 INTACT AND SL. ON TELE MONITOR READING SR. ALL NEEDS ATTENDED. ALL DUE MEDS GIVEN ORDERED. ALL SAFETY MEASURES IN PLACE. BED LOCKED IN THE LOWEST POSITION. CALL LIGHT AND TABLE IN EASY REACH. SIDE RAILS UP TIMES 2. WILL ENDORSE FOR WATSON.
--- NOTE | 2022-12-22 07:17 | NUR ---
DENTAL HYGIENIST MOBILE COORDINATOR OPENING NOTES PATIENT AWAKE IN BED. PATIENT IS A/O TIMES 4 AND OCCITAN SPEAKER . ABLE TO MAKE NEEDS KNOWN. NO PAIN NOTED. NO SOB NOTED. NO DISTRESS NOTED. IV ACCESS ON THE LAC G # 20 INTACT AND SL. ON TELE MONITOR READING SR, WITH HR AT 81 BPM. ALL NEEDS MET AT THIS TIME. ALL SAFETY MEASURES IN PLACE WITH THE BED LOCKED AND IN THE LOWEST POSITION. CALL LIGHT AND TABLE IN EASY REACH. SIDE RAILS UP TIMES 2. WILL CONTINUE TO MONITOR
[2022-12-22 08:00] VITALS: BP 136/72
--- NOTE | 2022-12-22 08:01 | NUR ---
RN CRESCENCIO SANDOVAL FROM THE LAB CALLED IN TO REPORT TROPONIN LEVEL OF 257. WILL NOTIFY
[2022-12-22] MEDS: ASPIRIN 81 MG TAB.CHEW PO SCH (08:18)
[2022-12-22] MEDS: ARIPIPRAZOLE 5 MG TABLET PO SCH (08:18)
[2022-12-22] MEDS: glipiZIDE 5 MG TABLET PO SCH (08:18)
[2022-12-22] MEDS: PANTOPRAZOLE 40 MG TABLET.DR PO SCH (08:19)
[2022-12-22] MEDS: FINASTERIDE (5 MG) 5 MG TABLET PO SCH (08:19)
[2022-12-22] MEDS: CARVEDILOL 12.5 MG TABLET PO SCH ×2 (08:20→17:03)
[2022-12-22] MEDS: VALSARTAN 80 MG TABLET PO SCH (08:21)
[2022-12-22] MEDS: ENOXAPARIN SODIUM 40 MG/0.4 ML DISP.SYRIN SQ SCH ×2 (08:22→20:33)
[2022-12-22 08:57] LABS: CALCIUM, SERUM 9.1 mg/dL (8.5-10.1); CARBON DIOXIDE 21 mmol/L (21-32); CHLORIDE 101 mmol/L (98-107); CREATININE 1.1 mg/dL (0.6-1.3); GLUCOSE 193 mg/dL (74-106); MAGNESIUM 1.9 mg/dL (1.8-2.4); PHOSPHORUS 3.4 mg/dL (2.5-4.9); POTASSIUM 3.8 mmol/L (3.5-5.1); SODIUM SERUM 135 mmol/L (136-145); UREA NITROGEN, BLOOD 18 mg/dL (7-18)
[2022-12-22 09:26] LABS: ALANINE AMINOTRANSFERASE 46 U/L (12-78); ALKALINE PHOSPHATASE 84 U/L (46-116); ASPARTATE AMINOTRANSFERASE 27 U/L (15-37); BILIRUBIN,TOTAL 0.6 mg/dL (0.2-1.0); TOTAL PROTEIN, SERUM 7.6 g/dL (6.4-8.2)
[2022-12-22 09:32] LABS: ALBUMIN 2.6 g/dL (3.4-5.0)
[2022-12-22 12:00] VITALS: BP 161/85
[2022-12-22 16:00] VITALS: BP 120/64
--- NOTE | 2022-12-22 19:13 | NUR ---
EXTRUSION DIE CORRECTOR CLOSING NOTES. PATIENT AWAKE IN BED. PATIENT IS A/O TIMES 4 AND GREEK SPEAKER . ABLE TO MAKE NEEDS KNOWN. NO PAIN NOTED. NO SOB NOTED. NO DISTRESS NOTED. IV ACCESS ON THE LAC G # 20 INTACT AND SL. ON TELE MONITOR. ALL NEEDS ATTENDED. ALL DUE MEDS GIVEN ORDERED. ALL SAFETY MEASURES IN PLACE. BED LOCKED IN THE LOWEST POSITION. CALL LIGHT AND TABLE IN EASY REACH. SIDE RAILS UP TIMES 2. WILL ENDORSE FOR WATSON.
--- NOTE | 2022-12-22 19:30 | NUR ---
MINE DEPUTY OPENING NOTES. RECEIVED PATIENT AWAKE IN BED. PATIENT IS A/O TIMES 4 AND COMORAN SPEAKER . ABLE TO MAKE NEEDS KNOWN. NO PAIN NOTED. NO SOB NOTED. NO DISTRESS NOTED. IV ACCESS ON THE LAC G # 20 INTACT AND SL. ON TELE MONITOR READING SR. ALL NEEDS ATTENDED. NPO AFTER MIDNIGHT FOR CARDIAC CATHETERIZATION IN THE MORNING. CONSENT SIGNED BY THE PATIENT.ALL SAFETY MEASURES IN PLACE. BED LOCKED IN THE LOWEST POSITION. CALL LIGHT AND TABLE IN EASY REACH. SIDE RAILS UP TIMES 2. WILL CONTINUE TO MONITOR CLOSELY.
--- NOTE | 2022-12-22 21:00 | NUR ---
RN NOTES CLARIFIED WITH THE ADMINISTRATION OF THE MEDICATION OF LOVENOX 80 MG FOR 2100 WITH PROGRAM ADMIN FLAVOR EXTRACTOR ESTER. SINCE PATIENT WILL HAVE TAX CLERK PROCEDURE TOMORROW BUT FLAVOR EXTRACTOR STATED I CAN GIVE THE LOVENOX.
[2022-12-22] MEDS: TAMSULOSIN 0.4 MG CAP.SR.24H PO SCH (21:49)
[2022-12-22] MEDS: INSULIN GLARGINE, 100 UNIT/ML CARTRIDGE SQ SCH (21:57)
--- NOTE | 2022-12-22 22:00 | NUR ---
RN NOTES PATIENT NPO FOR CAT LAB. BLOOD SUGAR RESULT WAS 195. HELD INSULIN LANTUS. ONLY ADMINISTERED REGULAR INSULIN. WILL MONITOR CLOSELY.
[2022-12-23 00:20] VITALS: BP 141/99
[2022-12-23 04:46] VITALS: BP 168/98
[2022-12-23 06:00] LABS: BILIRUBIN,URINE NEGATIVE (NEGATIVE); COLOR,URINE YELLOW (YELLOW); LEUKOCYTE ESTERASE ,URINE NEGATIVE (NEGATIVE); NITRITE, URINE NEGATIVE (NEGATIVE); PROTEIN,URINE NEGATIVE (NEGATIVE); UGLUCOSE TRACE mg/dL (NEGATIVE); UROBILINOGEN,URINE 0.2 EU/dL (0.2)
[2022-12-23] MEDS: BLOOD SUGAR DIAGNOSTIC 1 EACH STRIP IN SCH ×4 (06:08→22:00)
--- NOTE | 2022-12-23 06:08 | NUR ---
RN NOTES HELD MORNING INSULIN . PATIENT NPO FOR CAT LAB PROCEDURE.
[2022-12-23 06:17] LABS: BACTERIA,URINE Rare /HPF (None Seen); SQUAMOUS EPITHELIAL CELL,UR Few /HPF (None Seen); WBC,URINE 0-2 /HPF (0-3)
--- NOTE | 2022-12-23 06:27 | NUR ---
SIGN MAKER CLOSING NOTES. PATIENT AWAKE IN BED. PATIENT IS A/O TIMES 4 AND KYRGYZ SPEAKER . ABLE TO MAKE NEEDS KNOWN. NO PAIN NOTED. NO SOB NOTED. NO DISTRESS NOTED. IV ACCESS ON THE LAC G # 20 INTACT AND SL. ON TELE MONITOR READING SR. ALL NEEDS ATTENDED. ALL DUE MEDS GIVEN ORDERED. NPO SINCE MID NIGHT FOR CAT LAB PROCEDURE. ALL SAFETY MEASURES IN PLACE. BED LOCKED IN THE LOWEST POSITION. CALL LIGHT AND TABLE IN EASY REACH. SIDE RAILS UP TIMES 2. WILL ENDORSE FOR WATSON.
[2022-12-23 06:33] LABS: BASOPHILS % (AUTO) 0.3 % (0.0-2.0); HEMATOCRIT 36 % (39-51); HEMOGLOBIN 11.8 g/dL (13.5-17.5); LYMPHOCYTES # (AUTO) 1.7 K/uL (0.8-4.8); MEAN CORPUSCULAR HGB CONC 33 g/dl (31.0-36.0); MEAN CORPUSCULAR VOLUME 83 fL (80-96); MONOCYTES # (AUTO) 0.7 K/uL (0.1-1.30); MONOCYTES % (AUTO) 10.4 % (2.0-12.0); NEUTROPHILS # (AUTO) 4.4 K/uL (1.8-8.9); NEUTROPHILS % (AUTO) 63.3 % (43.0-81.0); PLATELET COUNT (AUTO) 293 K/uL (150-450); RED BLOOD CELL COUNT(AUTO) 4.32 MIL/uL (4.5-6.0); WHITE BLOOD COUNT (AUTO) 6.9 K/uL (4.3-11.0)
[2022-12-23 06:44] LABS: CALCIUM, SERUM 9.4 mg/dL (8.5-10.1); CREATININE 1.1 mg/dL (0.6-1.3); MAGNESIUM 1.9 mg/dL (1.8-2.4); POTASSIUM 3.9 mmol/L (3.5-5.1)
[2022-12-23] MEDS: PANTOPRAZOLE 40 MG TABLET.DR PO SCH (07:30)
--- NOTE | 2022-12-23 07:44 | NUR ---
HIGH SCHOOL AUTO REPAIR TEACHER OPENING NOTES PATIENT AWAKE IN BED. PATIENT IS A/O TIMES 4 AND [place] SPEAKER . ABLE TO MAKE NEEDS KNOWN. NO PAIN NOTED. NO SOB NOTED. NO DISTRESS NOTED. IV ACCESS ON THE LAC G # 18 INTACT AND SL. ON TELE MONITOR READING SR. NPO SINCE MID NIGHT FOR CAT LAB PROCEDURE. ALL SAFETY MEASURES IN PLACE. BED LOCKED IN THE LOWEST POSITION. CALL LIGHT AND TABLE IN EASY REACH. SIDE RAILS UP TIMES 2. WILL CONTINUE TO MONITOR.
[2022-12-23 08:00] VITALS: BP 130/80
[2022-12-23] MEDS: FINASTERIDE (5 MG) 5 MG TABLET PO SCH (09:00)
[2022-12-23] MEDS: METHIMAZOLE (5MG) 5 MG TABLET PO SCH (09:00)
[2022-12-23] MEDS: glipiZIDE 5 MG TABLET PO SCH (09:00)
[2022-12-23] MEDS: CARVEDILOL 12.5 MG TABLET PO SCH ×2 (09:00→14:50)
[2022-12-23] MEDS: ARIPIPRAZOLE 5 MG TABLET PO SCH (09:00)
[2022-12-23] MEDS: VALSARTAN 80 MG TABLET PO SCH (09:00)
[2022-12-23] MEDS: ASPIRIN 81 MG TAB.CHEW PO SCH (09:00)
[2022-12-23] MEDS: ENOXAPARIN SODIUM 40 MG/0.4 ML DISP.SYRIN SQ SCH ×2 (09:00→20:51)
[2022-12-23] MEDS ORDERED: IODIXANOL 150 ML IV ONE (11:24)
[2022-12-23] MEDS ORDERED: IV NS 0.9% 1,000 ML ONE (11:24)
[2022-12-23] MEDS ORDERED: LIDOCAINE 1% INJ 50 ML MDV IJ ONE (11:24)
[2022-12-23] MEDS ORDERED: IV SET PRIMARY PUMP SET 1 EA INFUS.SET MC ONE (11:24)
[2022-12-23] MEDS ORDERED: NITROGLYCERIN IN 5 % DEXTROSE 250 ML IV ONE (11:28)
[2022-12-23] MEDS ORDERED: MIDAZOLAM HCL 2 MG/2ML VIAL ONE (11:37)
[2022-12-23] MEDS ORDERED: FENTANYL PF 100MCG/2ML AMPUL ONE (11:37)
[2022-12-23] MEDS: INSULIN REGULAR, HUMAN 100 UNIT/ML 3 ML VIAL SQ PRN ×3 (13:26→23:29)
--- NOTE | 2022-12-23 13:47 | NUR ---
RN NOTES The patient on post cardiac catheterization. cath results; pending. Denies pain or shortness of breath. Right upper extremity pressure dressing noted, no bleeding noted.; good cap refill on the distal extremity. To continue to monitor, watch out for bleeding-right upper extremity; check for pulses while on pressure dressing.
--- NOTE | 2022-12-23 14:30 | NUR ---
RN NOTES REMOVED 5ML OF AIR AT TR BAND. NO BLEEDING, VITALS TAKEN AND STABLE.
--- NOTE | 2022-12-23 14:45 | NUR ---
RN NOTES REMOVED 5ML OF AIR AT TR BAND. NO BLEEDING, VITALS TAKEN AND STABLE.
--- NOTE | 2022-12-23 15:00 | NUR ---
RN NOTES REMOVED 5ML OF AIR AT TR BAND. NO BLEEDING, VITALS TAKEN AND STABLE.
--- NOTE | 2022-12-23 15:15 | NUR ---
RN NOTES REMOVED 5ML OF AIR AT TR BAND. NO BLEEDING, VITALS TAKEN AND STABLE. NO COMPLICATIONS NOTED.
[2022-12-23 16:00] VITALS: BP 152/82
--- NOTE | 2022-12-23 16:00 | NUR ---
RN NOTES S/P CORONARY ANGIOGRAPHY PROCEDURE. NO COMPLICATIONS NOTED, NO BLEEDING NOTED AT INSERTION SITE, PULSE PRESENT AT RT RADIAL PULSE. VITALS STABLE. TO MONITOR.
--- NOTE | 2022-12-23 18:29 | NUR ---
SECURITY SERVICES SPECIALIST CLOSING NOTES. PATIENT AWAKE IN BED. PATIENT IS A/O TIMES 4 AND UPPER SORBIAN SPEAKER . ABLE TO MAKE NEEDS KNOWN. NO PAIN NOTED. NO SOB NOTED. NO DISTRESS NOTED. IV ACCESS ON THE LAC G #20 INTACT AND SL. ON TELE MONITOR READING SR 85. ALL NEEDS ATTENDED. ALL DUE MEDS GIVEN ORDERED. [facility]. ALL DUE MEDS WERE GIVEN GIVEN. ALL SAFETY MEASURES IN PLACE. BED LOCKED IN THE LOWEST POSITION. CALL LIGHT AND TABLE IN EASY REACH. SIDE RAILS UP TIMES 2. WILL ENDORSE FOR WATSON.
--- NOTE | 2022-12-23 18:50 | NUR ---
LIME PLANT OPERATOR OPENING NOTES RECEIVED PATIENT IN BED AWAKE, ALERT AND ORIENTED. PATIENT IS A/O X 4. [place] SPEAKER . ABLE TO MAKE NEEDS KNOWN. NO PAIN NOTED. NO SOB NOTED. NO DISTRESS NOTED. IV ACCESS ON THE LAC G #20 INTACT AND SL. ON TELE MONITOR READING SR 80. ALL DUE ALL SAFETY MEASURES IN PLACE. BED LOCKED IN THE LOWEST POSITION. CALL LIGHT AND TABLE IN EASY REACH. SIDE RAILS UP TIMES 2. WILL CONTINUE WITH THE PLAN OF CARE.
[2022-12-23 20:00] VITALS: BP 112/73
[2022-12-23] MEDS: INSULIN GLARGINE, 100 UNIT/ML CARTRIDGE SQ SCH (22:00)
[2022-12-23] MEDS: TAMSULOSIN 0.4 MG CAP.SR.24H PO SCH (23:31)
[2022-12-24] VITALS: BP 145/79
[2022-12-24 04:00] VITALS: BP 141/69
[2022-12-24] MEDS: BLOOD SUGAR DIAGNOSTIC 1 EACH STRIP IN SCH ×2 (07:03→12:28)
[2022-12-24] MEDS: INSULIN REGULAR, HUMAN 100 UNIT/ML 3 ML VIAL SQ PRN ×2 (07:07→12:27)
[2022-12-24 07:58] LABS: CALCIUM, SERUM 9.2 mg/dL (8.5-10.1); CARBON DIOXIDE 24 mmol/L (21-32); CHLORIDE 103 mmol/L (98-107); CREATININE 1.1 mg/dL (0.6-1.3); GLUCOSE 187 mg/dL (74-106); POTASSIUM 3.8 mmol/L (3.5-5.1); SODIUM SERUM 136 mmol/L (136-145); UREA NITROGEN, BLOOD 19 mg/dL (7-18)
--- NOTE | 2022-12-24 07:59 | NUR ---
PRESIDENT [employer] COMPANY CLOSING NOTES PATIENT IN BED AWAKE, ALERT AND ORIENTED. PATIENT IS A/O X 4. NEPALI SPEAKER . ABLE TO MAKE NEEDS KNOWN. NO PAIN NOTED. NO SOB NOTED. NO DISTRESS NOTED. IV ACCESS ON THE LAC G #20 INTACT AND SL. ON TELE MONITOR READING SR 77. ALL NEEDS ATTENDED. ALL DUE MEDS GIVEN ORDERED. ALL SAFETY MEASURES IN PLACE. BED LOCKED IN THE LOWEST POSITION. CALL LIGHT AND TABLE IN EASY REACH. SIDE RAILS UP TIMES 2. WILL ENDORSE FOR WATSON.
[2022-12-24 08:00] VITALS: BP 157/81
--- NOTE | 2022-12-24 08:16 | NUR ---
RN OPENING NOTE PATIENT AWAKE IN BED RESTING, A/O X 4. NO S/S OF PAIN NOTED AT THIS TIME. ON ROOM AIR, NO SHORTNESS OF BREATH, NO DISTRESS NOTED. IV ACCESS LAC #18G, INTACT, PATENT AND FLUSHING WELL. PATIENT ON EXTERNAL ITALIAN TEACHER WITH CURRENT READING OF SR AND HR OF 77, NO CARDIAC DISTRESS NOTED. FALL AND SAFETY MEASURES IN PLACE, BED ALARM ON, BED IN LOW AND LOCK POSITION, CALL LIGHT AND TABLE WITHIN EASY REACH, SIDE RAILS UP X2. WILL CONTINUE TO MONITOR.
[2022-12-24] MEDS: FINASTERIDE (5 MG) 5 MG TABLET PO SCH (08:38)
[2022-12-24] MEDS: ASPIRIN 81 MG TAB.CHEW PO SCH (08:39)
[2022-12-24] MEDS: ARIPIPRAZOLE 5 MG TABLET PO SCH (08:40)
[2022-12-24] MEDS: glipiZIDE 5 MG TABLET PO SCH (08:40)
[2022-12-24] MEDS: CARVEDILOL 12.5 MG TABLET PO SCH (08:40)
[2022-12-24] MEDS: METHIMAZOLE (5MG) 5 MG TABLET PO SCH (08:41)
[2022-12-24] MEDS: VALSARTAN 80 MG TABLET PO SCH (08:42)
[2022-12-24] MEDS: ENOXAPARIN SODIUM 40 MG/0.4 ML DISP.SYRIN SQ SCH (08:44)
[2022-12-24] MEDS: PANTOPRAZOLE 40 MG TABLET.DR PO SCH (08:59)
[2022-12-24] MEDS ORDERED: ENOX40DI SQ (11:00)
[2022-12-24] MEDS ORDERED: CARV12.52 PO (11:00)
[2022-12-24 12:00] VITALS: BP 136/71
--- NOTE | 2022-12-24 13:53 | NUR ---
MANAGER SALES AND MARKETING NOTE PATIENT DISCHARGE IN STABLE MEDICAL CONDITION AND TRANSFER TO [facility] FOR A CABG. A/O X4, V/S TAKEN, STABLE AND RECORDED. PATIENT LEFT WITH IV ON LAC #18G. NAME ARM BAND REMOVED. EXTERNAL ABA TUTOR REMOVED AND RETURNED TO TELE DESK. SKIN ASSESSMENT NOT DONE, PATIENT REFUSED, PER PREVIOUS SKIN ASSESSMENT SKIN IS INTACT. ALL BELONGINGS CHECKED AND BELONGING LIST SIGNED. HEALTH TEACHING AND DISCHARGE INSTRUCTIONS GIVEN TO PATIENT AND NURSE AT [facility], VERBALIZED UNDERSTANDING. REPORT GIVEN TO TONEY AT 12:52 ([phone]). PATIENT LEFT UNIT VIA GURNEY WITH NO SIGN OF DISTRESS, ACCOMPANIED BY CONTRACTOR GENERAL ENGINEERING. CHARGE NURSE AWARE OF DISCHARGED.
== END 2022-12-24 13:15 | disposition short-term general hospital (02) | DRG 281 ==
LOC: ER 13:56 → TELE 15:57
PROVIDERS: ADMIT Nurse Practitioner Acute Care; ATTEND Internal Medicine
PROC: 4A023N7 Measurement of Cardiac Sampling and Pressure, Left Heart, Percutaneous Approach (ICD-10-PCS; principal; 2022-12-23)
PROC: B211YZZ Fluoroscopy of Multiple Coronary Arteries using Other Contrast (ICD-10-PCS; 2022-12-23)
DX: I21.4 Non-ST elevation (NSTEMI) myocardial infarction (principal); I50.32 Chronic diastolic (congestive) heart failure; E11.65 Type 2 diabetes mellitus with hyperglycemia; I25.10 Atherosclerotic heart disease of native coronary artery without angina pectoris; E05.90 Thyrotoxicosis, unspecified without thyrotoxic crisis or storm; Z20.822 Contact with and (suspected) exposure to COVID-19; E78.5 Hyperlipidemia, unspecified; I11.0 Hypertensive heart disease with heart failure; E03.9 Hypothyroidism, unspecified; F03.90 Unspecified dementia, unspecified severity, without behavioral disturbance, psychotic disturbance, mood disturbance, and anxiety; Z79.84 Long term (current) use of oral hypoglycemic drugs; Z79.4 Long term (current) use of insulin; Z79.899 Other long term (current) drug therapy; I35.1 Nonrheumatic aortic (valve) insufficiency; I25.2 Old myocardial infarction; Z79.82 Long term (current) use of aspirin; Z87.440 Personal history of urinary (tract) infections; Z83.3 Family history of diabetes mellitus; N40.0 Benign prostatic hyperplasia without lower urinary tract symptoms
CPT/HCPCS: 36415; 71045-TC; 75574; 80048-TC; 80053-TC; 80061-TC; 81001; 82962-TC; 83735-TC; 84100-TC; 84439-TC; 84443-TC; 84484-TC; 85025-TC; 85610-TC; 85730-TC; 87081-TC; 93307-TC; 93880-TC; G0378; G0500; J1644; J1650; J1815; J2250; J3010; J3490; J7030; J7050; Q9967